=== PATIENT | male | born 1945 | race Caucasian/White ===

== ENCOUNTER 2019-01-23 06:21 | Inpatient (IN) ==
[2019-01-23] MEDS ORDERED: CeFAZolin Syr 2,000MG/20 ML 2,000 MG/20 ML SYRINGE IVPB ONE (06:54)
[2019-01-23] MEDS ORDERED: Ringers Solution, Lactated 1,000 ML IVC SCH (07:00)
[2019-01-23] MEDS ORDERED: Lidocaine -MPF 1% 2 ML AMPUL ONE ×2 (07:03→07:17)
[2019-01-23] MEDS ORDERED: Famotidine 20 MG/2 ML VIAL IVP ONE (07:09)
[2019-01-23] MEDS ORDERED: Acetaminophen IV 1,000 MG/100 ML INFUS..BTL IVPB ONE (07:10)
[2019-01-23] MEDS ORDERED: Heparin 1,000 UNITS/500 mL 500 ML ONE ×2 (07:14→07:32)
[2019-01-23] MEDS ORDERED: *HR* FentaNYL (PF) 100 MCG/2 ML VIAL ONE (07:16)
[2019-01-23] MEDS ORDERED: *HR* Propofol 200 MG/20 ML VIAL IVP ONE (07:16)
[2019-01-23] MEDS ORDERED: Lidocaine -MPF 2% 2 ML VIAL ONE ×2 (07:20→07:29)
[2019-01-23] MEDS ORDERED: *HR* Succinylcholine 200 MG/10 ML VIAL IVP ONE (07:20)
[2019-01-23] MEDS ORDERED: *HR* Phenylephrine 10 MG/ML VIAL ONE (07:20)
[2019-01-23] MEDS ORDERED: *HR* Rocuronium Bromide 50 MG/5 ML VIAL ONE (07:20)
[2019-01-23] MEDS ORDERED: *HR* Remifentanil 2 MG VIAL IVP ONE (07:28)
[2019-01-23] MEDS ORDERED: Lidocaine HCL 4 ML Topical Solution (Laryng-O-Jet Kit Sterile Pak) TP ONE (07:29)
[2019-01-23] MEDS ORDERED: Protamine Sulfate 50 MG/5 ML VIAL IVP ONE (07:31)
[2019-01-23] MEDS ORDERED: Lidocaine 1% 20 ML MDV ONE (07:32)
[2019-01-23] MEDS ORDERED: ceFAZolin 1,000 MG, Sodium Chloride IRRigation 1,000 ML IR ONE (07:45)
[2019-01-23] MEDS ORDERED: *HR* Vasopressin 20 UNIT/ML VIAL ONE (08:10)
[2019-01-23] MEDS ORDERED: *HR* Atropine Sulfate 8 MG/20 ML VIAL IVP ONE (08:11)
[2019-01-23] MEDS ORDERED: Ondansetron 4 MG/2 ML VIAL ONE (08:34)
[2019-01-23] MEDS ORDERED: *HR* Heparin 5,000 UNIT/ML VIAL ONE ×2 (09:09→12:43)
[2019-01-23] MEDS ORDERED: Ketorolac 30 MG/ML VIAL ONE (10:22)
[2019-01-23] MEDS ORDERED: Neostigmine Methylsulfate 3 MG/3 ML SYRINGE ONE (10:48)
[2019-01-23] MEDS ORDERED: Insulin LISPRO 300 UNITS/3 ML VIAL SQ SCH (12:02)
[2019-01-23] MEDS ORDERED: Acetaminophen 325 MG TABLET PO PRN (12:02)
[2019-01-23] MEDS ORDERED: Ondansetron 4 MG/2 ML VIAL IVP PRN (12:02)
[2019-01-23] MEDS ORDERED: *HR* HYDROcodone/Acet 5/325 mg TABLET PO PRN (12:02)
[2019-01-23] MEDS ORDERED: *HR* Labetalol 20 MG/4 ML SYRINGE IVP PRN (12:02)
[2019-01-23] MEDS ORDERED: Naloxone 0.4 MG/ML INJ IVP PRN (12:02)
[2019-01-23] MEDS ORDERED: *HR* Dextrose 50 % in Water (Syg) 50 ML SYRINGE IVP PRN (12:29)
[2019-01-23] MEDS ORDERED: D5% in Water 1,000 ML IVC PRN (12:29)
[2019-01-23] MEDS ORDERED: Dextrose Gel 15 GM/37.5 ML TUBE PO PRN ×2 (12:29)
[2019-01-23] MEDS: Insulin LISPRO 300 UNITS/3 ML VIAL SQ SCH (16:55)
[2019-01-23] MEDS ORDERED: Insulin DETEMIR 100 UNIT/ML X5UNITS SQ SCH ×2 (18:00→21:00)
[2019-01-23] MEDS: Lisinopril 20 MG TABLET PO SCH (20:53)
[2019-01-24 05:18] LABS: Basophils % 0.4 %; Eosinophils # 0.1 K/mcL (0.0-0.6); Eosinophils % 1.6 %; Hematocrit 35.2 % (37.5-50.1); Hemoglobin 11.5 g/dL (12.9-16.9); Immature Granulocytes % 0.1 % (0-4); Lymphocytes # 2.4 K/mcL (0.6-4.6); Lymphocytes % 29.3 %; Mean Corpuscular HGB Conc 32.7 g/dL (31.6-35.5); Mean Corpuscular Hemoglobin 30.8 pg (28.0-33.3); Mean Corpuscular Volume 94.4 fL (83.0-100.0); Mean Platelet Volume 11.3 fL (9.4-12.4); Monocytes # 0.6 K/mcL (0.0-1.3); Monocytes % 7.4 %; Neutrophils # 5.1 K/mcL (1.6-8.9); Platelet Count 123 K/mcL (140-400); Red Blood Count 3.73 M/mcL (4.19-5.50); Red Cell Distribution Width 12.9 % (11.5-14.5); Segmented Neutrophils % 61.2 %; White Blood Count 8.3 K/mcL (4.3-11.1)
[2019-01-24 05:33] LABS: BUN/Creatinine Ratio 16 (6-26); Blood Urea Nitrogen 16 mg/dL (8-23); Calcium 8.5 mg/dL (8.6-10.3); Carbon Dioxide 25 mEq/L (23-29); Chloride 107 mEq/L (98-107); Glucose 151 mg/dL (70-105); Osmolality,Calculated 292 (280-300); Potassium 4.3 mEq/L (3.5-5.1); Sodium 139 mEq/L (136-145); eGFR For African Americans > 60 (> 60); eGFR For Non-African Americans > 60 (> 60)
[2019-01-24 07:39] VITALS: BP 163/70
[2019-01-24] MEDS: Lisinopril 20 MG TABLET PO SCH (08:17)
[2019-01-24] MEDS: Insulin LISPRO 300 UNITS/3 ML VIAL SQ SCH (08:33)
[2019-01-24] MEDS ORDERED: Insulin DETEMIR 100 UNIT/ML X5UNITS SQ SCH (09:00)
[2019-01-24] MEDS ORDERED: Cholecalciferol (D-3) 1,000 UNIT (25MCG) TABLET PO SCH (09:00)
[2019-01-24] MEDS ORDERED: Aspirin Enteric Coated 81 MG Tablet PO SCH (09:00)
[2019-01-24] MEDS ORDERED: amLODIPine 5 MG TABLET PO SCH (09:00)
[2019-01-24] MEDS ORDERED: Multivit/Ca/Min/Fe/FA 1 TAB TABLET PO SCH (09:00)
[2019-01-24] MEDS ORDERED: *HR* Glimepiride 4 MG TABLET PO SCH (09:00)
== END 2019-01-24 12:01 | disposition home or self-care (01) | DRG 39 ==
LOC: SAMDAY 06:21 → 2NNU 12:26
PROVIDERS: ADMIT Surgery Vascular Surgery; ATTEND Surgery Vascular Surgery